=== PATIENT | female | born 1975 | race Caucasian/White ===

== ENCOUNTER 2020-07-23 13:13 | Outpatient (CLI) | payer BC ==
[2020-07-23 14:54] LABS: Hemoglobin 11.6 g/dL (12.0-15.5); Mean Corpuscular HGB CONC 31.4 g/dL (32.0-36.0); Mean Corpuscular Hemoglobin 27.6 pg (27.0-33.0); Mean Corpuscular Volume 88.1 fl (81.6-98.3); Mean Platelet Volume 9.1 fl (7.4-10.4); Platelet Count 444 10x3/uL (150-450); RBC Distribution Width 15.4 % (11.5-14.5); White Blood Cell (WBC) Count 7.1 10x3/uL (3.5-10.5)
[2020-07-23 15:21] LABS: PTT 28.2 sec (22.0-33.0); Prothrombin Time 10.1 sec (9.5-12.1)
[2020-07-24 02:30] LABS: SARS-CoV-2 PCR by NAA Not Detected (NotDetected)
== END 2020-07-23 13:14 | disposition home or self-care (01) ==
LOC: LABBT 13:13
PROVIDERS: ATTEND Neurological Surgery
DX: Z01.812 Encounter for preprocedural laboratory examination (principal); Z20.822 Contact with and (suspected) exposure to COVID-19; M50.122 Cervical disc disorder at C5-C6 level with radiculopathy
CPT/HCPCS: 85027; 85610; 85730; 87635; U0003; U0005

== ENCOUNTER 2020-07-26 10:17 | Day surgery (SDC) | payer BC ==
[2020-07-24 14:55] VITALS: BMI 23.3
[2020-07-26] MEDS ORDERED: Fentanyl 100 MCG/2 ML VIAL ONE ×2 (11:05→16:08)
[2020-07-26] MEDS ORDERED: Dexmedetomidine 200 MCG/2 ML VIAL ONE (11:06)
[2020-07-26] MEDS ORDERED: HYDROmorphone 0.5 MG/0.5 ML SYRINGE ONE (11:06)
[2020-07-26] MEDS ORDERED: Thrombin 5000 UNITS/5 ML VIAL ONE (11:37)
[2020-07-26] MEDS ORDERED: Midazolam HCl 2 mg/2 ml Vial ONE (12:15)
[2020-07-26] MEDS ORDERED: PROPOFOL 200 MG/20 ML VIAL ONE (12:34)
[2020-07-26] MEDS ORDERED: Ondansetron PF 4 MG/2 ML Vial ONE (12:34)
[2020-07-26] MEDS ORDERED: ePHEDrine 50 MG/ML VIAL ONE ×2 (12:34→15:27)
[2020-07-26] MEDS ORDERED: Rocuronium Bromide 10 MG/ML (10ML VIAL) ONE (12:34)
[2020-07-26] MEDS ORDERED: Dexamethasone 20 MG/5 ML VIAL ONE (12:34)
[2020-07-26] MEDS ORDERED: diphenhydrAMINE 50 MG/ML VIAL ONE ×2 (12:34→12:43)
[2020-07-26] MEDS ORDERED: Ketorolac Tromethamine 30 MG/ML VIAL ONE (12:34)
[2020-07-26] MEDS ORDERED: Lidocaine 1% PF 5 ML VIAL ONE (12:34)
[2020-07-26] MEDS ORDERED: Glycopyrrolate 0.2 MG/ML 5 ML SYRINGE ONE (12:34)
[2020-07-26] MEDS ORDERED: Promethazine HCl 25 MG/ML VIAL ONE (12:43)
== END 2020-07-26 17:58 | disposition home or self-care (01) ==
LOC: SDC 10:17
PROVIDERS: ATTEND Neurological Surgery
PROC: 0RT30ZZ Resection of Cervical Vertebral Disc, Open Approach (ICD-10-PCS; principal; 2020-07-26)
PROC: 0RG00A0 Fusion of Occipital-cervical Joint with Interbody Fusion Device, Anterior Approach, Anterior Column, Open Approach (ICD-10-PCS; principal; 2020-07-26)
PROC: 0RG20A0 Fusion of 2 or more Cervical Vertebral Joints with Interbody Fusion Device, Anterior Approach, Anterior Column, Open Approach (ICD-10-PCS; principal; 2020-07-26)
DX: M50.122 Cervical disc disorder at C5-C6 level with radiculopathy (principal); I10 Essential (primary) hypertension; Z79.899 Other long term (current) drug therapy; Z88.8 Allergy status to other drugs, medicaments and biological substances
CPT/HCPCS: 76000; C1713; J0690; J1100; J1170; J1200; J1885; J2250; J2405; J2550; J2704; J3010; J3490

== ENCOUNTER 2020-10-24 11:12 | Outpatient (CLI) | payer BC | END 2020-10-24 11:13 | disposition home or self-care (01) | LOC: TBSIIMAG 11:12 | PROVIDERS: ATTEND Neurological Surgery | DX: M54.12 Radiculopathy, cervical region (principal); Z98.1 Arthrodesis status | CPT/HCPCS: 72040 ==